=== PATIENT | female | born 1970 | race Caucasian/White ===

== ENCOUNTER 2024-05-04 11:19 | Emergency (ER) | payer OTHER, SELFPAY ==
[2024-05-04 11:25] VITALS: BP 119/60
--- NOTE | 2024-05-04 11:46 | EDRN ---
Pt is presently awaiting results of her xray and labs at this time. Daughter in room w/ pt at this time.
[2024-05-04 11:57] LABS: COVID-19 Antigen Negative (Negative)
--- NOTE | 2024-05-04 12:04 | ED.GENMED ---
History of Present Illness
General
Chief Complaint: Breathing Problem
Source: patient
Exam Limitations: none
Time Seen by Provider: 05/04/24 11:36
Nursing documentation reviewed up to this point in time: agreed with
History of Present Illness
History of Present Illness:
53-year-old female presenting to the emergency department today with concerns of intermittent shortness of breath cough over the past few weeks. Worsening over the past week. Has been using her inhalers without relief. Does have a history of
asthma.
Past History
Past History
ED Past Medical History: Asthma and Psychiatric (Anxiety)
ED Past Surgical History: Other ([place] teeth)
Social History
Tobacco: Non-smoker
Drug: None
Personal:
Living: with family
Family History
Family History: Other (No history of PE/DVT)
Review of Systems
Review of Systems
Allergies reviewed?: Yes
All Other Systems: ROS reviewed and negative except as documented in HPI and ROS
Phy Exam
Physical Exam
Physical Exam:
GENERAL: Alert , in no apparent distress
EYE: pupils equal and reactive
NECK: Supple, no significant adenopathy.
ENT: o/p clr, mmm.
CARDIAC: Regular rate and rhythm .
LUNGS: Very slight end expiratory wheeze otherwise good air movement
ABDOMEN: Soft, without focal tenderness, no r/g, no cvat
NEUROLOGICAL: Alert and oriented, no focal neuro deficits
SKIN: Warm and dry, skin intact.
MUSCULOSKELETAL: No edema, well perfused.
PSYCH: Normal and appropriate interaction.
Scores
Heart Failure Risk
Heart Failure Risk Score: Not Applicable
Course
Orders/Labs/Results
Orders:
Orders
05/04/24 11:28
CR Chest - 2 Views Urgent
Comment:
Reason For Exam: cough
05/04/24 11:32
COVID-19 Antigen Urgent
Source: Nasal Swab
Influenza A+B Rapid Molecular Urgent
CHARLEE Source: Nasal Swab
Specimen Description:
Vital Signs
Initial and Last Documented VS:
Initial Vital Signs
Temp Pulse Resp BP Pulse Ox
98.1 F 91 20 119/60 99
05/04/24 11:25 05/04/24 11:25 05/04/24 11:25 05/04/24 11:25 05/04/24 11:25
Last Documented Vital Signs
Temp Pulse Resp BP Pulse Ox
98.1 F 91 20 119/60 99
05/04/24 11:25 05/04/24 11:25 05/04/24 11:25 05/04/24 11:25 05/04/24 11:25
MDM/Problems Addressed
MDM/Problems Addressed:
53-year-old female presenting to the emergency department today with concerns of intermittent cough and shortness of breath. Does have a very end expiratory wheeze here with forced exhalation. Otherwise good air movement. Vital signs normal on
arrival. Patient started on steroids but otherwise can follow-up. Return precautions given. X-ray without acute abnormalities. Of note there was a noted torturous aorta. Appears unchanged from previous. This was discussed with the patient 2021.
*Critical Care Note
Total Time (30-74mins, 75-104mins- exclusive of procedures): Not Applicable
ED Attending Note
-
Portions of this chart may have been created with voice recognition software.� Occasional wrong word or��sound alike� substitutions may have occurred due to the inherent limitations of voice recognition software.
Discharge Plan
Departure
Patient Disposition: Home (Routine Discharge)
Date of Disposition: 05/04/24
Time of Disposition: 12:12
Patient with high blood pressure during this ER visit?: No
Condition: Good
Covid-19: Not Applicable
Discharge Problem:
Wheeze
Instructions: Asthma, Adult (DC)
Prescriptions:
New
prednisone 20 mg tablet
40 mg PO DAILY 3 Days Qty: 6 0RF
No Action
lisinopril 20 MG tablet
40 mg PO DAILY
metformin 1,000 MG tablet
1,000 mg PO BID
Simvastatin
1 tab PO HS
Patient Comments:
pt unsure of doseage
Referrals:
Ching Almeida DO [Family Provider] -
Activity Restrictions/Additional Instructions:
You came to the emergency department today with concerns of ongoing respiratory symptoms. You were started on steroid. Please follow closely with your primary care doctor within 1 week. Return for any worsening, new or concerning symptoms
Interventions
Interventions:
*General Assessment Last Done: 05/04/24 11:25
Discharge Date and Time
Print Language: BAHAMIAN
[2024-05-04 12:10] VITALS: BP 97/52; BMI 31.0
[2024-05-04] MEDS: DECADRON 10 MG PO (12:11)
== END 2024-05-04 12:19 | disposition home or self-care (01) ==
LOC: EMR 11:19
PROVIDERS: EMERGENCY PHYSICIAN Emergency Medicine; FAMILY PHYSICIAN Family Medicine
DX: R06.2 Wheezing (principal); F41.9 Anxiety disorder, unspecified
CPT/HCPCS: 99283; 71046; 87502; 87811

== ENCOUNTER → 2025-01-01 12:15 | Outpatient (REF) | payer OTHER, SELFPAY | LOC: RAD 12:15 | PROVIDERS: ATTENDING PHYSICIAN Family Medicine | DX: M54.50 Low back pain, unspecified (principal); M54.16 Radiculopathy, lumbar region | CPT/HCPCS: 72110 ==